=== PATIENT | male | born 1980 | race Caucasian/White ===

== ENCOUNTER 2023-01-29 16:49 | Emergency (ER) | payer MEDICAID ==
[~2023-01-29] VITALS: Ht 175.3 cm; Wt 73.0 kg
[2023-01-29 16:56] VITALS: O2SAT 100
[2023-01-29 18:15] VITALS: BP 136/73
[2023-01-29] MEDS ORDERED: HYDROCODONE/ACETAMINOPHEN 5/325MG TABLET PO ONE (18:15)
[2023-01-29] MEDS ORDERED: IBUP-2029 MT (18:24)
[2023-01-29] MEDS ORDERED: KETOROLAC 60MG/2ML VIAL IM ONE (18:30)
[2023-01-29 19:13] VITALS: PULSE 88; RESP 17; TEMP 99
== END 2023-01-29 19:14 | disposition home or self-care (01) ==
LOC: ER 17:19
DX: S42.032A Displaced fracture of lateral end of left clavicle, initial encounter for closed fracture (principal); Z98.890 Other specified postprocedural states; W19.XXXA Unspecified fall, initial encounter; Y93.67 Activity, basketball; Y92.89 Other specified places as the place of occurrence of the external cause; Y99.8 Other external cause status
CPT/HCPCS: 73030; 99283; A4565

== ENCOUNTER → 2025-02-10 | Day surgery (SDC) | payer MEDICAID ==
[~2025-02-10] VITALS: Ht 177.8 cm; Wt 74.8 kg
[~2025-02-10] MED LIST: ACETAMINOPHEN 1,000MG/100ML PREMIX IV PRN; ACETAMINOPHEN 1000MG/100ML 100 ML IV ONE; BUPIVACAINE HCL 0.5% 175 ML in ON-Q PM013 DRUG DELIV DEVICE 1 EA IR SCH; BUPIVACAINE HCL/PF 0.5% (5MG/ML) 10ML ONE; FAMOTIDINE 20MG/2ML VIAL IV PRN; FENTANYL CITRATE/PF 50MCG/ML 2ML VIAL ONE; HYDRALAZINE 20MG/ML VIAL IV PRN; HYDROMORPHONE HCL/PF 2MG/ML INJ ONE; IBUP-1455 MT; LABETALOL 5MG/ML 4ML INJ IV PRN; MIDAZOLAM HCL 2 MG/2 ML VIAL ONE; SKIN ADHESIVE 0.7 GM EA TOP ONE
[2025-02-10] MEDS: LACTATED RINGERS 1,000 ML IV SCH (07:32)
[2025-02-10] MEDS: HYDROMORPHONE HCL/PF 1MG/ML INJ IV PRN (11:00)
[2025-02-10 11:43] VITALS: BP 121/77; PULSE 66; RESP 18
[2025-02-10] MEDS: MEPERIDINE HCL/PF 25MG/ML CPJ IV PRN (11:43)
[2025-02-10] MEDS: BUPIVACAINE HCL 0.5% 175 ML in ON-Q PUMP (PM013=P270X2) IR SCH (11:44)
[2025-02-10] MEDS: ONDANSETRON HCL 4MG/2ML INJ IV PRN (11:52)
== END | disposition home or self-care (01) ==
LOC: OR 06:49
PROVIDERS: ATTEND Surgery
DX: K40.90 Unilateral inguinal hernia, without obstruction or gangrene, not specified as recurrent (principal); Z79.899 Other long term (current) drug therapy; Z98.890 Other specified postprocedural states
CPT/HCPCS: 49505; J3010; J0665; J3490; J2250; J2405; J1171; J2175; C1781; J0131